=== PATIENT | female | born 1950 | race Two or more races ===

== ENCOUNTER 2017-05-21 13:37 | Outpatient (CLI) | payer OTHER | END 2017-05-21 13:51 | disposition home or self-care (01) | LOC: MAMO-SONO 13:37 | DX: Z12.31 Encounter for screening mammogram for malignant neoplasm of breast (principal); Z87.898 Personal history of other specified conditions; N64.4 Mastodynia; M25.512 Pain in left shoulder ==

== ENCOUNTER 2017-11-26 10:19 | Outpatient (CLI) | payer OTHER | END 2017-11-26 16:11 | disposition home or self-care (01) | LOC: NUCLEAR 10:19 | DX: M81.0 Age-related osteoporosis without current pathological fracture (principal) ==

== ENCOUNTER 2018-06-03 11:42 | Outpatient (CLI) | payer OTHER | END 2018-06-03 11:48 | disposition home or self-care (01) | LOC: MAMO-SONO 11:42 | DX: Z12.31 Encounter for screening mammogram for malignant neoplasm of breast (principal); Z87.898 Personal history of other specified conditions; N64.4 Mastodynia ==

== ENCOUNTER 2019-12-08 10:34 | Outpatient (CLI) | payer OTHER | END 2019-12-08 10:36 | disposition home or self-care (01) | LOC: SONOGRAMA 10:34 | PROVIDERS: ATTEND Physical Medicine & Rehabilitation | DX: M66.821 Spontaneous rupture of other tendons, right upper arm (principal); M25.211 Flail joint, right shoulder ==

== ENCOUNTER 2020-08-09 16:25 | Inpatient (IN) | payer OTHER ==
[~2020-08-09] VITALS: Ht 152.4 cm; Wt 57.2 kg
[2020-08-09] MEDS ORDERED: CLARITIN10 M1 (16:35)
[2020-08-09] MEDS ORDERED: XANAX1 MG (16:35)
[2020-08-09] MEDS ORDERED: AMBIEN10 MG (16:36)
[2020-08-09] MEDS ORDERED: PRISTIQ ER50 MG (16:36)
[2020-08-10] MEDS ORDERED: CYCLOBENZAPRINE5 MG (15:22)
== END 2020-08-14 16:03 | disposition designated cancer center or children's hospital (05) | DRG 282 ==
LOC: ER 16:25 → MEDJ 08-10 00:42
PROVIDERS: ADMIT Internal Medicine; ATTEND Internal Medicine
PROC: 4A12X4Z Monitoring of Cardiac Electrical Activity, External Approach (ICD-10-PCS; principal; 2020-08-10)
DX: I21.4 Non-ST elevation (NSTEMI) myocardial infarction (principal); F43.10 Post-traumatic stress disorder, unspecified; F41.8 Other specified anxiety disorders

== ENCOUNTER 2021-05-16 11:11 | Outpatient (CLI) | payer OTHER ==
[~2021-05-16 11:11] MED LIST: AMBIEN10 MG; CLARITIN10 M1; CYCLOBENZAPRINE5 MG; PRISTIQ ER50 MG; XANAX1 MG
== END 2021-05-16 11:12 | disposition home or self-care (01) ==
LOC: MAMO-SONO 11:11
PROVIDERS: ATTEND Internal Medicine Endocrinology, Diabetes & Metabolism
DX: N64.0 Fissure and fistula of nipple (principal)

== ENCOUNTER 2021-07-05 08:00 | Outpatient (CLI) | payer OTHER | END 2021-07-05 08:30 | disposition home or self-care (01) | LOC: PPH VACUNA 08:00 | PROVIDERS: ATTEND Emergency Medicine Pediatric Emergency Medicine | DX: Z23 Encounter for immunization (principal) ==